=== PATIENT | male | born 1955 | race Caucasian/White ===

== ENCOUNTER 2017-03-27 17:50 | Emergency (ER) | payer SELFPAY ==
[2017-03-27 18:44] LABS: ALBUMIN 3.4 g/dL (3.4-5.0); ANION GAP 11.1 mmol/L (8-16); BILIRUBIN - TOTAL 0.34 mg/dL (0.2-1.3); CALCIUM 8.7 mg/dL (8.5-10.1); CARBON DIOXIDE 29.4 mmol/L (21.0-32.0); CREATININE - SERUM 1.1 mg/dL (0.6-1.3); POTASSIUM - SERUM 3.5 mmol/L (3.5-5.1); PROTEIN - SERUM 6.9 g/dL (6.4-8.2)
[2017-03-27 18:57] LABS: BASOPHILS 0.5 % (0-2); EOSINOPHILS 0.1 % (0-7); HEMATOCRIT 36.3 % (42.0-54.0); HEMOGLOBIN 12.4 g/dL (13.5-17.5); IMMATURE GRANULOCYTES 0.1 % (0-5); LYMPHOCYTES 16.4 % (15-50); MCH 29.1 pg (26.0-34.0); MCHC 34.2 g/dL (31.0-37.0); MCV 85.2 fL (80.0-100.0); MEAN PLATELET VOLUME 10.1 fL (7.4-10.4); NEUTROPHILS 76.9 % (40-80); PLATELET COUNT 303 10x3/uL (130-400); RBC 4.26 10x6/uL (4.20-6.10); RDW 13.6 % (11.5-14.5); WBC 7.3 10x3/uL (4.8-10.8)
[2017-03-27 19:22] LABS: TROPONIN-I 0.06 ng/mL (0.000-0.060)
[2017-03-27 19:39] LABS: APPEARANCE CLEAR (CLEAR); BILIRUBIN NEGATIVE (NEGATIVE); COLOR YELLOW (YELLOW); GLUCOSE NEGATIVE (NEGATIVE); KETONE NEGATIVE (NEGATIVE); NITRITE NEGATIVE (NEGATIVE); PROTEIN NEGATIVE (NEGATIVE); UROBILINOGEN NORMAL (NORMAL)
== END 2017-03-27 23:58 | disposition home or self-care (01) ==
LOC: D.ER 17:50
PROVIDERS: Family Medicine; Physician Assistant Medical
DX: I10 Essential (primary) hypertension (principal); R00.1 Bradycardia, unspecified

== ENCOUNTER 2017-04-03 18:37 | Emergency (ER) | payer SELFPAY | END 2017-04-03 22:25 | disposition home or self-care (01) | LOC: D.ER 18:37 | DX: I10 Essential (primary) hypertension (principal); F17.200 Nicotine dependence, unspecified, uncomplicated ==

== ENCOUNTER → 2018-10-10 12:48 | Outpatient (CLI) | payer OTHER | END | disposition home or self-care (01) | LOC: D.RT 12:48 | DX: Z02.71 Encounter for disability determination (principal) ==